=== PATIENT | female | born 1975 | race Caucasian/White ===

== ENCOUNTER 2024-06-24 11:25 | Emergency (ER) | payer SELFPAY ==
[~2024-06-24] VITALS: Ht 162.6 cm; Wt 63.0 kg
[2024-06-24] MEDS: HYDROCODONE/ACETAMINOPHEN 5/325MG TABLET PO ONE (14:56)
[2024-06-24] MEDS: IPRATROPIUM/ALBUTEROL 0.5-3(2.5)MG/3ML NEB HHN ONE (15:04)
[2024-06-24 15:10] VITALS: PULSE 83; RESP 18; O2SAT 99
[2024-06-24] MEDS ORDERED: IBUP-1523 MT (15:21)
[2024-06-24] MEDS ORDERED: TOPUD MT (15:21)
[2024-06-24] MEDS ORDERED: ALBU90AE INH (15:21)
[2024-06-24] MEDS ORDERED: DEXT30SU17 MT (15:21)
[2024-06-24] MEDS ORDERED: AZIT250T12 MT (15:21)
[2024-06-24 16:34] VITALS: BP 125/68; PULSE 78; RESP 18; TEMP 36.78072; O2SAT 99
== END 2024-06-24 16:55 | disposition home or self-care (01) ==
LOC: ER 11:25
DX: J20.9 Acute bronchitis, unspecified (principal); Z98.890 Other specified postprocedural states
CPT/HCPCS: 71045; 94640; 94070; 99283; Z7610 ×3; 94664